=== PATIENT | male | born 1955 | race Caucasian/White ===

== ENCOUNTER 2016-10-22 15:32 | Emergency (ER) | payer BC ==
[~2016-10-22] VITALS: Ht 182.9 cm; Wt 100.0 kg
[2016-10-22] MEDS ORDERED: LOSA1TAB36 PO (15:42)
[2016-10-22] MEDS ORDERED: PROPARACAINE HCL 0.5% 15 ML OPHTHALMIC SOLUTION OU ONE (17:30)
[2016-10-22 18:00] VITALS: BP 142/78
[2016-10-22] MEDS ORDERED: ERYTHROMYCIN 0.5% 3.5 GM TUBE OPHTHALMIC OINTMENT OU ONE (19:00)
[2016-10-22] MEDS ORDERED: HYDROCODONE/ACETAMINOPHEN 5-325 MG TABLET PO ONE (19:00)
== END 2016-10-22 19:28 | disposition home or self-care (01) ==
LOC: EMS 15:35
DX: H10.89 Other conjunctivitis (principal); I10 Essential (primary) hypertension
CPT/HCPCS: 99284

== ENCOUNTER 2016-11-04 13:39 | Emergency (ER) | payer BC ==
[~2016-11-04] VITALS: Ht 172.7 cm; Wt 97.7 kg
[~2016-11-04 13:39] MED LIST: LOSA1TAB36 PO
[2016-11-04] MEDS ORDERED: FINA5TAB41 PO (13:56)
[2016-11-04 14:38] LABS: ADD UA MICROSCOPIC YES; APPEARANCE,URINE TURBID (CLEAR); GLUCOSE, URINE (UA) NEGATIVE (NEGATIVE); KETONES,URINE TRACE mg/dL (NEGATIVE); LEUKOCYTE ESTERASE ,URINE LARGE (NEGATIVE); OCCULT BLOOD,URINE LARGE (NEGATIVE); PH,URINE 5.5 (5.0-8.0); PROTEIN,URINE SEE CONFIRM (NEGATIVE)
[2016-11-04 14:44] LABS: SULFOSALICYLIC ACID,URINE 1+ (Negative)
[2016-11-04 14:45] LABS: RBC,URINE 51-100 /HPF (0-2); SQUAMOUS EPITHELIAL CELL,UR Moderate /LPF (None Seen); WBC,URINE 51-100 /HPF (0-5)
[2016-11-04 16:00] VITALS: BP 132/88
== END 2016-11-04 16:13 | disposition home or self-care (01) ==
LOC: EMS 13:41
DX: N39.0 Urinary tract infection, site not specified (principal); I10 Essential (primary) hypertension
CPT/HCPCS: 87086; 99284

== ENCOUNTER 2018-07-15 16:39 | Emergency (ER) | payer BC ==
[~2018-07-15] VITALS: Ht 180.3 cm; Wt 91.0 kg
[~2018-07-15 16:39] MED LIST changes: +FINA5TAB41 PO; -LOSA1TAB36 PO; +LOSA1TAB42 PO
[2018-07-15] MEDS ORDERED: BENZONATATE 100 MG CAPSULE PO ONE (20:00)
[2018-07-15 20:05] VITALS: BP 140/85
== END 2018-07-15 20:37 | disposition home or self-care (01) ==
LOC: EMS 16:40
DX: J06.9 Acute upper respiratory infection, unspecified (principal); I10 Essential (primary) hypertension; Z79.899 Other long term (current) drug therapy

== ENCOUNTER 2019-09-04 00:16 | Emergency (ER) | payer MEDICARE ==
[~2019-09-04] VITALS: Ht 180.3 cm; Wt 93.2 kg
[2019-09-04] MEDS ORDERED: LOSA25TA41 PO (00:34)
[2019-09-04 01:57] LABS: RAPID GROUP A STREP NEGATIVE (NEGATIVE)
[2019-09-04 02:06] LABS: INFLUENZA TYPE A NEGATIVE FOR TYPE A (NEGATIVE); INFLUENZA TYPE B NEGATIVE FOR TYPE B (NEGATIVE)
[2019-09-04] MEDS ORDERED: ERYTHROMYCIN 0.5% 3.5 GM TUBE OPHTHALMIC OINTMENT OU ONE (02:15)
[2019-09-04 02:35] VITALS: BP 129/78
== END 2019-09-04 02:49 | disposition home or self-care (01) ==
LOC: EMS 00:16
DX: J02.9 Acute pharyngitis, unspecified (principal); H10.33 Unspecified acute conjunctivitis, bilateral; I10 Essential (primary) hypertension; Z79.899 Other long term (current) drug therapy
CPT/HCPCS: 87430; 87804

== ENCOUNTER 2022-10-17 11:59 | Emergency (ER) | payer MEDICARE ==
[~2022-10-17] VITALS: Ht 177.8 cm; Wt 90.9 kg
[~2022-10-17 11:59] MED LIST changes: -FINA5TAB41 PO; +LOSA-381 PO
[2022-10-17] MEDS ORDERED: SIMV10TA97 PO (12:12)
[2022-10-17] MEDS ORDERED: TAMS-13 PO (12:12)
[2022-10-17 12:18] LABS: COVID AG,FIA SOURCE NASAL SWAB
[2022-10-17 12:51] LABS: INFLUENZA TYPE A NEGATIVE FOR TYPE A (NEGATIVE); INFLUENZA TYPE B NEGATIVE FOR TYPE B (NEGATIVE)
[2022-10-17 13:20] LABS: APPEARANCE,URINE CLEAR (CLEAR); GLUCOSE, URINE (UA) NEGATIVE (NEGATIVE); KETONES,URINE 40-60 mg/dL (NEGATIVE); LEUKOCYTE ESTERASE ,URINE NEGATIVE (NEGATIVE); NITRATE,URINE NEGATIVE (NEGATIVE); OCCULT BLOOD,URINE NEGATIVE (NEGATIVE); PROTEIN,URINE 100-200,SEE CONFIRM mg/dL (NEGATIVE)
[2022-10-17 13:28] LABS: BILIRUBIN,URINE SMALL (NEGATIVE)
[2022-10-17 13:34] LABS: SULFOSALICYLIC ACID,URINE Trace (Negative)
[2022-10-17] MEDS ORDERED: BENZ1LOZ77 PO (13:51)
[2022-10-17] MEDS ORDERED: IBUP-1492 PO (13:51)
[2022-10-17] MEDS ORDERED: ACET-66 PO (13:51)
[2022-10-17 14:05] VITALS: BP 133/78
== END 2022-10-17 14:18 | disposition home or self-care (01) ==
LOC: EMS 11:59
DX: J06.9 Acute upper respiratory infection, unspecified (principal); E78.00 Pure hypercholesterolemia, unspecified; I10 Essential (primary) hypertension
CPT/HCPCS: 81002; 81003; 87804; 99283